=== PATIENT | male | born 1990 | race Caucasian/White ===

== ENCOUNTER 2018-10-16 05:45 | Emergency (ER) | payer SELFPAY ==
[~2018-10-16] VITALS: Ht 167.6 cm; Wt 96.9 kg
[2018-10-16 06:00] VITALS: BP 121/66; PULSE 102; RESP 20; Ht 167.6 cm; Wt 96.9 kg
[2018-10-16] MEDS ORDERED: ONDANSETRON 4 MG INJ IV STA (06:28)
[2018-10-16] MEDS ORDERED: SOD CHLORIDE 0.9% 1,000 ML IV STA (06:28)
--- NOTE | 2018-10-16 07:02 | ERD ---
ER Documentation Chief Complaint Chief Complaint c/o anxiety x 1 hour while at work HPI Patient is a 27-year-old male, no past medical history, presents the ER for concerns of feeling anxious while at work x1 hour. Patient is brought in by rescue ambulance from work. Patient states he is currently under stress secondary to separation from his . Patient denies any homicidal ideations or suicidal ideations. Patient states he was hanging out with his friends last night and he had 6 to 7 glasses of cranberry vodka as well as tried cocaine for the first time. Patient states he feels "off". Patient denies any chest pain, shortness of breath, palpitations, left lower extremity pain, jaw pain, diaphoresis, nausea, vomiting, abdominal pain, fevers, chills or LOC. Patient denies past cardiac history. ROS All systems reviewed and are negative except as per history of present illness. Allergies Allergies: Coded Allergies: No Known Allergy (Unverified , 10/16/18) PMhx/Soc Medical and Surgical Hx: pt denies Medical Hx, pt denies Surgical Hx History of Surgery: No Anesthesia Reaction: No Hx Neurological Disorder: No Hx Respiratory Disorders: No Hx Cardiac Disorders: No Hx Psychiatric Problems: No Hx Miscellaneous Medical Probl: No Hx Alcohol Use: Yes Hx Substance Use: Yes (cocaine) Hx Tobacco Use: Yes (Cigarettes/Vape) Smoking Status: Current every day smoker FmHx Family History: No diabetes, No coronary disease Physical Exam Vitals Vital Signs Date Temp Pulse Resp B/P (MAP) Pulse Ox O2 O2 Flow FiO2 Time Delivery Rate 10/16/18 97.5 102 20 121/66 97 06:00 (84) Physical Exam GENERAL: Well-developed, well-nourished male. Appears in no acute distress. Speaking in full sentences HEAD: Normocephalic, atraumatic. EYES: Pupils are equally reactive bilaterally. EOMs grossly intact. No conjunctival erythema. ENT: Moist mucous membranes. No uvula deviation. No kissing tonsils. NECK: Supple. No meningismus. Normal range of motion of the neck. LUNG: Clear to auscultation bilaterally. No rhonchi, wheezing, rales or coarse breath sounds. HEART: Tachycardic. No murmurs, rubs or gallops. Equal pulses in bilateral upper extremities. EXTREMITIES: Equal pulses bilaterally. No peripheral clubbing, cyanosis or edema. No unilateral leg swelling. NEUROLOGIC: Alert and oriented. Moving all four extremities without any difficulty. Normal speech. Steady gait. SKIN: Normal color. Warm and dry. No rashes or lesions. Result Diagram: 10/16/1838 10/16/1838 Results 24 hrs Laboratory Tests Test 10/16/18 06:38 White Blood Count 9.8 10^3/ul Red Blood Count 4.94 10^6/ul Hemoglobin 14.6 g/dl Hematocrit 41.4 % Mean Corpuscular Volume 83.8 fl Mean Corpuscular Hemoglobin 29.6 pg Mean Corpuscular Hemoglobin Concent 35.3 g/dl Red Cell Distribution Width 11.9 % Platelet Count 240 10^3/UL Mean Platelet Volume 9.5 fl Immature Granulocytes % 0.500 % Neutrophils % 68.8 % Lymphocytes % 25.2 % Monocytes % 5.1 % Eosinophils % 0.1 % Basophils % 0.3 % Nucleated Red Blood Cells % 0.0 /100WBC Immature Granulocytes # 0.050 10^3/ul Neutrophils # 6.7 10^3/ul Lymphocytes # 2.5 10^3/ul Monocytes # 0.5 10^3/ul Eosinophils # 0.0 10^3/ul Basophils # 0.0 10^3/ul Nucleated Red Blood Cells # 0.0 10^3/ul Sodium Level 137 mmol/L Potassium Level 3.4 mmol/L Chloride Level 98 mmol/L Carbon Dioxide Level 20 mmol/L Anion Gap 19 Blood Urea Nitrogen 6 mg/dl Creatinine 0.67 mg/dl Est Glomerular Filtrat Rate mL/min > 60 mL/min Glucose Level 147 mg/dl Calcium Level 9.5 mg/dl Total Bilirubin 1.2 mg/dl Direct Bilirubin 0.00 mg/dl Indirect Bilirubin 1.2 mg/dl Aspartate Amino Transf (AST/SGOT) 163 IU/L Alanine Aminotransferase (ALT/SGPT) 246 IU/L Alkaline Phosphatase 116 IU/L Troponin I < 0.012 ng/ml Total Protein 9.0 g/dl Albumin 5.0 g/dl Globulin 4.00 g/dl Albumin/Globulin Ratio 1.25 Current Medications Medications Dose Sig/Tamra Start Time Status Last (Trade) Ordered Route PRN Stop Time Admin Dose Reason Admin Sodium 1,000 ml @ Q1H STAT 10/16/18 DC 10/16/18 Chloride 1,000 mls/hr IV 06:28 06:41 10/16/18 07:27 Ondansetron 4 mg ONCE STAT 10/16/18 DC 10/16/18 HCl (Zofran IV 06:28 06:43 Inj) 10/16/18 06:30 Procedures/MDM ED COURSE: The patient was stable throughout ED course. I kept the patient and/or family informed of laboratory and diagnostic imaging results throughout the ED course. EKG: Read by Dr. Dupree attending physician. EKG shows normal sinus rhythm at a rate of 97 bpm No arrhythmias or no STEMI. DIAGNOSTIC IMAGING: Read by radiologist. Patient: PATRICK KEARNS : 1990 Age: 27 Sex: M MR #: [id number] DOS: 10/16/18627 Ordering MD: LUKE RUSSO PA-C Location: [facility] Room/Bed: PROCEDURE: XR Chest. CLINICAL INDICATION: Chest pain TECHNIQUE: Single frontal view of the chest was obtained COMPARISON: None FINDINGS: The heart and mediastinum are within normal limits. No discrete focal consolidation. There is no pleural effusion or pneumothorax. IMPRESSION: No acute cardiopulmonary process. RPTAT: EE Physician Katherine Date Time Electronically viewed and signed by Physician Katherine on 10/16/2018 07:39 rV/ CC: LUKE RUSSO PA-C [phone] PROCEDURES: None. MEDICATIONS GIVEN: IV fluids, Zofran Patient tolerated medication well with no adverse reactions. Patient reported improvement in pain. MEDICAL DECISION MAKING: This is a 37-year-old male, no past medical history, presents the ER for concerns of feeling anxious while at work x1 hour. Patient admits to alcohol use last night as well as trying cocaine for the first time. Vital signs were reviewed. Patient was afebrile. Patient was not hypoxic. IV line was established. Blood work was obtained. CBC showed WBC count within normal limits. No evidence of severe anemia. CMP showed no severe electrolyte abnormalities, acidosis, alkalosis or renal injury. Patient's anion gap was noted to be 19 likely due to recent alcohol use. Patient did have elevation of AST and ALT which are consistent with his history of alcohol use. Troponin was within normal limits. Patient was given IV fluids, Zofran IV. EKG showed normal sinus rhythm of [address] elevations. Reviewed by ED attending Dr. Dupree. While pending laboratory test results, nursing staff notified me that patient eloped from the department with IV in place. Nursing staff as well as technology lab teacher attempted to call patient however he did not respond initially. Patient did call back. Patient stated to the nursing staff that he did not wish to wait any longer for his results thus he left. Patient was advised that he left with IV line and placed. Patient was advised that [employer] were contacted as patient eloped with IV. Patient stated that he remove the IV line and minimal bleeding occurred. Patient was advised to return to the ER so IV site could be looked out however patient refused to return. At this time, the patient's presentation is most consistent with anxiety, alcohol use and cocaine use. Low suspicion for ACS, arrhythmia, pericarditis, PE, pneumothorax, pneumonia or pleural effusion. Eloped without any discharge paperwork. Disclaimer: Inadvertent spelling and grammatical errors are likely due to EHR/dictation software use and do not reflect on the overall quality of patient care. Also, please note that the electronic time recorded on this note does not necessarily reflect the actual time of the patient encounter. Departure Diagnosis: Primary Impression: Anxiousness Additional Impressions: Cocaine use Alcohol use Condition: Fair Patient Instructions: Anxiety Reaction Referrals: [facility] YOU HAVE RECEIVED A MEDICAL SCREENING EXAM AND THE RESULTS INDICATE THAT YOU DO NOT HAVE A CONDITION THAT REQUIRES URGENT TREATMENT IN THE EMERGENCY DEPARTMENT. FURTHER EVALUATION AND TREATMENT OF YOUR CONDITION CAN WAIT UNTIL YOU ARE SEEN IN YOUR DOCTORS OFFICE WITHIN THE NEXT 1-2 DAYS. IT IS YOUR RESPONSIBILITY TO MAKE AN APPOINTMENT FOR FOLOW-UP CARE. IF YOU HAVE A PRIMARY DOCTOR --you should call your primary doctor and schedule an appointment IF YOU DO NOT HAVE A PRIMARY DOCTOR YOU CAN CALL OUR PHYSICIAN REFERRAL HOTLINE AT IF YOU CAN NOT AFFORD TO SEE A PHYSICIAN YOU CAN CHOSE FROM THE FOLLOWING [facility] [address] [facility] [address] [facility] [facility] [address] [facility] [address] [facility] [address] [facility]. [facility] [address] [facility]. [facility] YOU HAVE RECEIVED A MEDICAL SCREENING EXAM AND THE RESULTS INDICATE THAT YOU DO NOT HAVE A CONDITION THAT REQUIRES URGENT TREATMENT IN THE EMERGENCY DEPARTMENT. FURTHER EVALUATION AND TREATMENT OF YOUR CONDITION CAN WAIT UNTIL YOU ARE SEEN IN YOUR DOCTORS OFFICE WITHIN THE NEXT 1-2 DAYS. IT IS YOUR RESPONSIBILITY TO MAKE AN APPOINTMENT FOR FOLOW-UP CARE. IF YOU HAVE A PRIMARY DOCTOR --you should call your primary doctor and schedule and appointment IF YOU DO NOT HAVE A PRIMARY DOCTOR YOU CAN CALL OUR PHYSICIAN REFERRAL HOTLINE AT . IF YOU CAN NOT AFFORD TO SEE A PHYSICIAN YOU CAN CHOSE FROM THE FOLLOWING FORMERLY [facility], [facility] INSTITUTIONS: [facility] [address] [place] [address] [facility] [address] [place] [address] [facility] + [facility] [address] [place] [address] Additional Instructions: Call your primary care doctor TOMORROW for an appointment during the next 1-2 days.See the doctor sooner or return here if your condition worsens before your appointment time. LUKE RUSSO PA-C Oct 16, 2018 07:02
== END 2018-10-16 08:13 | disposition left against medical advice (07) ==
LOC: FTE 05:45
DX: F41.9 Anxiety disorder, unspecified (principal); F14.90 Cocaine use, unspecified, uncomplicated; F10.99 Alcohol use, unspecified with unspecified alcohol-induced disorder; F17.210 Nicotine dependence, cigarettes, uncomplicated; R07.9 Chest pain, unspecified
CPT/HCPCS: 71045; 80053; 84484; 85025; 93005; J2405; J7030; 36415; 96374